=== PATIENT | female | born 1955 | race Caucasian/White ===

== ENCOUNTER 2022-09-16 09:04 | Inpatient (IN) | payer MEDICARE, MEDICAID ==
[~2022-09-16] VITALS: Ht 154.9 cm; Wt 54.2 kg
[2022-09-16] MEDS ORDERED: SODIUM CHLORIDE 0.9% 1,000 ML IV ONE (09:30)
[2022-09-16 09:51] LABS: Eosinophils # (auto) 0.1 10 ^3/uL (0-0.8); Hemoglobin 13.3 g/dL (12.2-16.2); Mean Corpuscular Hgb Conc. 33.8 g/dL (32.0-36.0); Nucleated Red Blood Cells % 0.1 %
[2022-09-16 09:53] LABS: Basophils # (auto) 0 10 ^3/uL (0-0.2); Basophils % (auto) 0.7 % (0.0-2.0); Hematocrit 39.5 % (36.0-46.0); Lymphocytes # (auto) 1.4 10 ^3/uL (0.4-5.4); Mean Corpuscular Hemoglobin 31.8 pg (28.0-32.0); Monocytes # (auto) 0.6 10 ^3/uL (0-1.3); Monocytes % (auto) 8.7 % (0.0-12.0); Neutrophils # (auto) 4.3 10 ^3/uL (1.6-8.6); Neutrophils % (auto) 67.6 % (37.0-80.0); Red Cell Distribution Width 14.8 % (11.8-14.3); White Blood Cell 6.4 10^3/uL (4.4-10.8)
[2022-09-16 10:05] LABS: Albumin 3.8 g/dL (3.4-5.0); Calcium 8.2 mg/dL (8.5-10.1); Potassium 4.2 mmol/L (3.5-5.1)
[2022-09-16 10:09] LABS: BUN/Creatinine Ratio 8.9; Bilirubin, Total 0.5 mg/dL (0.2-1.0); Total Protein 6.8 g/dL (6.4-8.2)
[2022-09-16 10:13] LABS: INR 1.01 (0.9-1.15); Partial Thromboplastin Time 30.8 sec (24.6-33.4)
[2022-09-16] MEDS ORDERED: GLYCERIN ADULT RECTAL SUPP PR ONE (14:15)
[2022-09-16] MEDS ORDERED: ONDANSETRON HCL 4 MG/2 ML VIAL IV PRN (14:15)
[2022-09-16] MEDS: PANTOPRAZOLE 40 MG/10 ML VIAL INJ IV SCH (20:46)
[2022-09-16] MEDS: SODIUM CHLORIDE 0.9% 1,000 ML IV SCH (20:49)
[2022-09-17 05:18] LABS: Basophils # (auto) 0.2 10 ^3/uL (0-0.2); Basophils % (auto) 2.7 % (0.0-2.0); Eosinophils # (auto) 0.1 10 ^3/uL (0-0.8); Eosinophils % (auto) 1.4 % (0.0-7.0); Hematocrit 39.6 % (36.0-46.0); Hemoglobin 12.9 g/dL (12.2-16.2); Lymphocytes # (auto) 1.5 10 ^3/uL (0.4-5.4); Lymphocytes % (auto) 24.3 % (10.0-50.0); Mean Corpuscular Hemoglobin 30.9 pg (28.0-32.0); Mean Corpuscular Hgb Conc. 32.5 g/dL (32.0-36.0); Mean Corpuscular Volume 95.3 fL (80.0-100.0); Monocytes # (auto) 0.5 10 ^3/uL (0-1.3); Monocytes % (auto) 7.4 % (0.0-12.0); Neutrophils % (auto) 64.2 % (37.0-80.0); Nucleated Red Blood Cells % 0.2 %; Red Blood Cells 4.16 10^6/uL (4.0-5.20); Red Cell Distribution Width 14.6 % (11.8-14.3); White Blood Cell 6.2 10^3/uL (4.4-10.8)
[2022-09-17 05:31] LABS: Calcium 7.1 mg/dL (8.5-10.1); Potassium 3.5 mmol/L (3.5-5.1)
[2022-09-17 05:33] LABS: BUN/Creatinine Ratio 32.4
[2022-09-17] MEDS: SODIUM CHLORIDE 0.9% 1,000 ML IV SCH ×2 (06:55→23:35)
[2022-09-17] MEDS: PANTOPRAZOLE 40 MG/10 ML VIAL INJ IV SCH (10:25)
[2022-09-17 13:00] VITALS: BP 97/57
[2022-09-17] MEDS ORDERED: PRED1SUS4 (14:05)
[2022-09-17] MEDS ORDERED: ATOR10TA52 PO (14:05)
[2022-09-17] MEDS ORDERED: LOS25T PO (14:05)
[2022-09-17] MEDS ORDERED: AMLO-489 PO (14:05)
[2022-09-17] MEDS ORDERED: LORA-340 (14:05)
[2022-09-17] MEDS ORDERED: LEV88T PO (14:05)
[2022-09-17] MEDS ORDERED: FLUT50SP NAS (14:05)
[2022-09-17] MEDS ORDERED: BACL10TA PO (14:05)
[2022-09-17] MEDS ORDERED: FOLI1TAB6 PO (14:05)
[2022-09-17] MEDS ORDERED: TRAZ100T3 PO (14:05)
[2022-09-17] MEDS ORDERED: METH2.5T PO (14:05)
[2022-09-17] MEDS ORDERED: PRE5T PO (14:05)
[2022-09-17 17:06] VITALS: BP 111/63
[2022-09-17 20:00] VITALS: BP 121/63
[2022-09-18 05:00] VITALS: BP 127/60
[2022-09-18 09:00] VITALS: BP 127/60
[2022-09-18] MEDS: PANTOPRAZOLE 40 MG/10 ML VIAL INJ IV SCH (09:11)
[2022-09-18 13:00] VITALS: BP 122/61
[2022-09-18] MEDS ORDERED: LACTULOSE 20Gm/30ML SOLN PO ONE (13:30)
[2022-09-18] MEDS ORDERED: FLEET ENEMA(ADULT) 135 ML PR ONE ×2 (13:30→14:00)
[2022-09-18] MEDS ORDERED: FLEET MINERAL OIL ENEMA 133 ML PR ONE (13:45)
[2022-09-18] MEDS: SODIUM CHLORIDE 0.9% 1,000 ML IV SCH (16:15)
[2022-09-18 17:00] VITALS: BP 135/70
[2022-09-18 22:00] VITALS: BP 148/65
[2022-09-18] MEDS: DOCUSATE SOD 100 MG CAP PO SCH (22:00)
[2022-09-18] MEDS: LACTULOSE 20Gm/30ML SOLN PO SCH (22:00)
[2022-09-19 05:00] VITALS: BP 142/66
[2022-09-19] MEDS ORDERED: FLEET ENEMA(ADULT) 135 ML PR ONE (06:00)
[2022-09-19] MEDS ORDERED: FLEET MINERAL OIL ENEMA 133 ML PR ONE (06:00)
[2022-09-19 08:00] VITALS: BP 125/56
[2022-09-19] MEDS: PANTOPRAZOLE 40 MG/10 ML VIAL INJ IV SCH (09:33)
[2022-09-19] MEDS: SODIUM CHLORIDE 0.9% 1,000 ML IV SCH (09:33)
[2022-09-19] MEDS: LACTULOSE 20Gm/30ML SOLN PO SCH ×2 (09:34→21:50)
[2022-09-19] MEDS: DOCUSATE SOD 100 MG CAP PO SCH ×2 (09:34→21:50)
[2022-09-19 13:00] VITALS: BP 122/62
[2022-09-19 16:58] VITALS: BP 108/61
[2022-09-19 22:00] VITALS: BP 143/67
[2022-09-20] MEDS: SODIUM CHLORIDE 0.9% 1,000 ML IV SCH ×2 (01:35→06:03)
[2022-09-20 05:00] VITALS: BP 110/67
[2022-09-20] MEDS ORDERED: FLEET MINERAL OIL ENEMA 133 ML PR ONE (05:00)
[2022-09-20 08:30] VITALS: BP 111/60
[2022-09-20] MEDS: LACTULOSE 20Gm/30ML SOLN PO SCH ×2 (08:56→21:40)
[2022-09-20] MEDS: DOCUSATE SOD 100 MG CAP PO SCH ×2 (08:57→21:40)
[2022-09-20 13:00] VITALS: BP 114/68
[2022-09-20] MEDS ORDERED: GOLYTELY 4L KIT PO ONE (16:45)
[2022-09-20] MEDS: POLYETHYLENE GLYCOL 17 GM PWDR PO SCH (18:00)
[2022-09-20 20:10] VITALS: BP 127/63
[2022-09-20 22:15] VITALS: BP 127/63
[2022-09-21] VITALS (7 sets, daily range): BP systolic 118–139; BP diastolic 61–79
[2022-09-21] MEDS ORDERED: LOPE2CAP PO (02:39)
[2022-09-21] MEDS ORDERED: ZOLP5TAB5 PO (02:39)
[2022-09-21] MEDS ORDERED: SENN-58 PO (02:39)
[2022-09-21] MEDS ORDERED: LIDO5PAD8 EX (02:39)
[2022-09-21] MEDS ORDERED: HYDR-4072 PO (02:39)
[2022-09-21 03:14] LABS: INR 1.15 (0.9-1.15); Partial Thromboplastin Time 33.1 sec (24.6-33.4)
[2022-09-21] MEDS ORDERED: FLEET MINERAL OIL ENEMA 133 ML PR ONE (05:00)
[2022-09-21] MEDS ORDERED: GOLYTELY 4L KIT PO ONE (06:00)
[2022-09-21 06:57] LABS: Urine Bacteria NONE SEEN /hpf (None Seen); Urine Blood TRACE /uL (Negative); Urine Mucus FEW (None Seen); Urine WBC 12 /hpf (0 - 5)
[2022-09-21] MEDS ORDERED: POLYETHYLENE GLYCOL 17 GM PWDR PO ONE (08:00)
[2022-09-21] MEDS: DOCUSATE SOD 100 MG CAP PO SCH ×2 (10:00→22:06)
[2022-09-21] MEDS: LACTULOSE 20Gm/30ML SOLN PO SCH ×2 (10:00→22:06)
[2022-09-21] MEDS ORDERED: NALOXONE HCL 0.4 MG/ML VIAL ONE (10:14)
[2022-09-21] MEDS ORDERED: FLUMAZENIL 0.1 MG/ML INJ 10ML MDV IV ONE (10:14)
[2022-09-21] MEDS ORDERED: EPINEPHrine HCL 1 MG/1 ML AMP ONE (10:14)
[2022-09-21] MEDS ORDERED: EPINEPHrine HCL 1 MG/10 ML SYRG ONE (10:14)
[2022-09-21] MEDS ORDERED: SODIUM CHLORIDE LOCK 10 ML ONE (10:16)
[2022-09-21] MEDS: diphenhdrAMINE HCL 50 MG/1 ML VL ONE ×2 (17:39→17:41)
[2022-09-21] MEDS: MIDAZOLAM HCL 5 MG/ML-1ML VIAL ONE ×4 (17:39→17:51)
[2022-09-21] MEDS: fentaNYL CITRATE 100 MCG/2 ML VL ONE ×3 (17:39→17:49)
[2022-09-21] MEDS: POLYETHYLENE GLYCOL 17 GM PWDR PO SCH (18:00)
[2022-09-21] MEDS: SODIUM CHLORIDE 0.9% 1,000 ML IV SCH (19:04)
[2022-09-22 05:00] VITALS: BP 101/68
[2022-09-22] MEDS: SODIUM CHLORIDE 0.9% 1,000 ML IV SCH (05:03)
[2022-09-22 08:00] VITALS: BP 122/72
[2022-09-22 09:28] VITALS: BP 97/64
[2022-09-22] MEDS ORDERED: POLY33504 PO (09:37)
[2022-09-22] MEDS: LACTULOSE 20Gm/30ML SOLN PO SCH (10:00)
[2022-09-22] MEDS: DOCUSATE SOD 100 MG CAP PO SCH (10:00)
[2022-09-22 12:45] VITALS: BP 99/61
[2022-09-22 13:51] VITALS: BP 102/82
== END 2022-09-22 14:50 | disposition home or self-care (01) | DRG 390 ==
LOC: ER 09:04 → OVERFLOW 14:17 → WEST WING 09-17 11:00
PROVIDERS: ADMIT Nurse Practitioner Family; ATTEND Family Medicine
PROC: 0DJD8ZZ Inspection of Lower Intestinal Tract, Via Natural or Artificial Opening Endoscopic (ICD-10-PCS; principal; 2022-09-21 17:30)
DX: K56.41 Fecal impaction (principal); I10 Essential (primary) hypertension; M41.9 Scoliosis, unspecified; Z20.822 Contact with and (suspected) exposure to COVID-19; K57.30 Diverticulosis of large intestine without perforation or abscess without bleeding
CPT/HCPCS: 36415; 71045; 74176; 80048; 80053; 81001; 84443; 84484; 85025; 85610; 85730; 86850; 86900; 86901; 87426; 96361; 96374; C9113; G0378; J0171; J2250

== ENCOUNTER → 2023-01-17 | Outpatient (CLI) | payer MEDICARE, MEDICAID ==
[~2023-01-17] MED LIST: AMLO-489 PO; ATOR10TA52 PO; BACL10TA PO; FLUT50SP NAS; FOLI1TAB6 PO; HYDR-4072 PO; LEV88T PO; LIDO5PAD8 EX; LOPE2CAP PO; LORA-340; LOS25T PO; METH2.5T PO; POLY33504 PO; PRE5T PO; PRED1SUS4; SENN-58 PO; TRAZ100T3 PO; ZOLP5TAB5 PO
[2023-01-17 09:24] LABS: Urine Bacteria NONE SEEN /hpf (None Seen); Urine Blood Negative /uL (Negative); Urine Specific Gravity 1.004 (1.001-1.035); Urine WBC <1 /hpf (0 - 5)
== END | disposition home or self-care (01) ==
LOC: LAB 09:04
PROVIDERS: ATTEND Obstetrics & Gynecology
DX: N39.0 Urinary tract infection, site not specified (principal)
CPT/HCPCS: 81001; 87086

== ENCOUNTER 2023-02-24 19:11 | Inpatient (IN) | payer MEDICARE, MEDICAID ==
[~2023-02-24] VITALS: Ht 154.9 cm; Wt 54.7 kg
[2023-02-24] MEDS ORDERED: ACCU-CHEK COMFORT CURVE STRIP VI ONE (21:00)
[2023-02-24 21:35] LABS: Basophils # (auto) 0.1 10 ^3/uL (0-0.2); Basophils % (auto) 1.4 % (0.0-2.0); Eosinophils # (auto) 0.3 10 ^3/uL (0-0.8); Eosinophils % (auto) 2.8 % (0.0-7.0); Hematocrit 39.2 % (36.0-46.0); Hemoglobin 12.9 g/dL (12.2-16.2); Lymphocytes # (auto) 1.7 10 ^3/uL (0.4-5.4); Lymphocytes % (auto) 17.9 % (10.0-50.0); Mean Corpuscular Hemoglobin 30.4 pg (28.0-32.0); Mean Corpuscular Volume 92.2 fL (80.0-100.0); Monocytes # (auto) 0.3 10 ^3/uL (0-1.3); Monocytes % (auto) 3.2 % (0.0-12.0); Neutrophils # (auto) 6.9 10 ^3/uL (1.6-8.6); Neutrophils % (auto) 74.7 % (37.0-80.0); Nucleated Red Blood Cells % 0.1 %; Red Blood Cells 4.25 10^6/uL (4.0-5.20); Red Cell Distribution Width 14.5 % (11.8-14.3); White Blood Cell 9.3 10^3/uL (4.4-10.8)
[2023-02-24 21:51] LABS: Albumin 3.5 g/dL (3.4-5.0); Potassium 3.3 mmol/L (3.5-5.1)
[2023-02-24 21:57] LABS: BUN/Creatinine Ratio 12.1 (10.0-20.0); Bilirubin, Total 0.4 mg/dL (0.2-1.0); Total Protein 7.1 g/dL (6.4-8.2)
[2023-02-24 22:00] LABS: Calcium 14.1 mg/dL (8.5-10.1)
[2023-02-25] MEDS ORDERED: SODIUM CHLORIDE 0.9% 1,000 ML IV SCH ×2 (02:30→05:15)
[2023-02-25] MEDS ORDERED: NITROGLYCERIN 0.4 MG SL TAB SL PRN ×2 (02:30→05:15)
[2023-02-25] MEDS ORDERED: ACETAMINOPHEN 325 MG TAB PO PRN ×2 (02:30→05:15)
[2023-02-25] MEDS ORDERED: HYDROcodone-ACET 5/325MG TAB PO PRN (02:30)
[2023-02-25] MEDS ORDERED: ONDANSETRON HCL 4 MG/2 ML VIAL IV PRN ×2 (02:30→05:15)
[2023-02-25] MEDS ORDERED: DOCUSATE SOD 100 MG CAP PO PRN ×2 (02:30→05:15)
[2023-02-25] MEDS ORDERED: FUROSEMIDE 40 MG/4 ML VIAL IV ONE ×2 (02:30→05:15)
[2023-02-25] MEDS ORDERED: MORPHINE SULFATE INJ 2 MG/ml SYRG IV PRN ×4 (02:30→05:15)
[2023-02-25] MEDS: HYDROcodone-ACET 5/325MG TAB PO PRN ×2 (05:25→23:02)
[2023-02-25] MEDS ORDERED: SODIUM CHLORIDE 0.9% 1,000 ML IV ONE (06:00)
[2023-02-25] MEDS: LEVOTHYROXINE SODIUM 88 MCG TAB PO SCH (06:34)
[2023-02-25 06:44] LABS: Basophils # (auto) 0.1 10 ^3/uL (0-0.2); Eosinophils # (auto) 0.2 10 ^3/uL (0-0.8); Eosinophils % (auto) 3.1 % (0.0-7.0); Hematocrit 34.4 % (36.0-46.0); Hemoglobin 11.6 g/dL (12.2-16.2); Lymphocytes # (auto) 1.3 10 ^3/uL (0.4-5.4); Lymphocytes % (auto) 18.5 % (10.0-50.0); Mean Corpuscular Hemoglobin 30.8 pg (28.0-32.0); Mean Corpuscular Hgb Conc. 33.6 g/dL (32.0-36.0); Mean Corpuscular Volume 91.7 fL (80.0-100.0); Monocytes # (auto) 0.2 10 ^3/uL (0-1.3); Monocytes % (auto) 2.7 % (0.0-12.0); Neutrophils # (auto) 5.1 10 ^3/uL (1.6-8.6); Neutrophils % (auto) 74.7 % (37.0-80.0); Nucleated Red Blood Cells % 0.1 %; Red Blood Cells 3.75 10^6/uL (4.0-5.20); Red Cell Distribution Width 14.1 % (11.8-14.3); White Blood Cell 6.9 10^3/uL (4.4-10.8)
[2023-02-25] MEDS ORDERED: LEVOTHYROXINE SODIUM 88 MCG TAB PO SCH (07:00)
[2023-02-25 07:11] LABS: Urine Bacteria NONE SEEN /hpf (None Seen); Urine Blood Negative /uL (Negative); Urine Hyaline Cast FEW /lpf (0 - 2); Urine Specific Gravity 1.009 (1.001-1.035); Urine WBC 1 /hpf (0 - 5)
[2023-02-25 07:18] LABS: Calcium 12.4 mg/dL (8.5-10.1)
[2023-02-25 07:22] LABS: Bilirubin, Total 0.4 mg/dL (0.2-1.0); Total Protein 6.5 g/dL (6.4-8.2)
[2023-02-25 07:36] LABS: Potassium 2.7 mmol/L (3.5-5.1)
[2023-02-25 07:39] LABS: Amphetamine Screen, Urine NEGATIVE (NEGATIVE); Barbiturate Scree,Urine NEGATIVE (NEGATIVE); Benzodiazephine Screen, Urine NEGATIVE (NEGATIVE); Cannabinoid Screen, Urine NEGATIVE (NEGATIVE); Cocaine Screen, Urine NEGATIVE (NEGATIVE); Opiate Scree,Urine NEGATIVE (NEGATIVE); Phencyclidine Screen, Urine NEGATIVE (NEGATIVE)
[2023-02-25] MEDS ORDERED: POTASSIUM CHL 20 Meq TABLET PO ONE (09:00)
[2023-02-25] MEDS ORDERED: FUROSEMIDE 20 MG/2 ML VIAL IV SCH (10:00)
[2023-02-25 10:30] LABS: Creatinine, Urine 43 mg/dL (30.0-125.0); Sodium Urine 43 mmol/L (40-220)
[2023-02-25] MEDS: SODIUM CHLORIDE 0.9% 1,000 ML IV SCH (13:52)
[2023-02-25 18:23] LABS: BUN/Creatinine Ratio 14.4 (10.0-20.0); Calcium 12.5 mg/dL (8.5-10.1); Potassium 3.3 mmol/L (3.5-5.1)
[2023-02-25 22:37] VITALS: BP 133/70
[2023-02-25 23:00] VITALS: BP 133/70
[2023-02-26] MEDS: SODIUM CHLORIDE 0.9% 1,000 ML IV SCH ×4 (00:39→21:45)
[2023-02-26 05:00] VITALS: BP 139/72
[2023-02-26 05:56] LABS: Basophils # (auto) 0.1 10 ^3/uL (0-0.2); Basophils % (auto) 1.8 % (0.0-2.0); Eosinophils # (auto) 0.3 10 ^3/uL (0-0.8); Eosinophils % (auto) 4.9 % (0.0-7.0); Lymphocytes # (auto) 1.5 10 ^3/uL (0.4-5.4); Lymphocytes % (auto) 25.4 % (10.0-50.0); Mean Corpuscular Hemoglobin 30.7 pg (28.0-32.0); Mean Corpuscular Hgb Conc. 34.3 g/dL (32.0-36.0); Mean Corpuscular Volume 89.7 fL (80.0-100.0); Monocytes # (auto) 0.2 10 ^3/uL (0-1.3); Monocytes % (auto) 2.6 % (0.0-12.0); Neutrophils # (auto) 3.8 10 ^3/uL (1.6-8.6); Neutrophils % (auto) 65.3 % (37.0-80.0); Red Blood Cells 3.57 10^6/uL (4.0-5.20); Red Cell Distribution Width 14.4 % (11.8-14.3); White Blood Cell 5.9 10^3/uL (4.4-10.8)
[2023-02-26] MEDS: LEVOTHYROXINE SODIUM 88 MCG TAB PO SCH (06:12)
[2023-02-26] MEDS: HYDROcodone-ACET 5/325MG TAB PO PRN ×3 (06:13→21:04)
[2023-02-26 06:21] LABS: Albumin 2.7 g/dL (3.4-5.0); BUN/Creatinine Ratio 16.7 (10.0-20.0); Bilirubin, Total 0.3 mg/dL (0.2-1.0); Calcium 11.2 mg/dL (8.5-10.1); Phosphorus 4.2 mg/dL (2.5-4.90); Uric Acid 9.3 mg/dL (2.6-6.0)
[2023-02-26 09:00] VITALS: BP 146/70
[2023-02-26] MEDS: FUROSEMIDE 20 MG/2 ML VIAL IV SCH (10:57)
[2023-02-26 13:00] VITALS: BP 157/73
[2023-02-26 17:00] VITALS: BP 148/71
[2023-02-26 22:00] VITALS: BP 146/71
[2023-02-27 05:00] VITALS: BP 140/80
[2023-02-27] MEDS: SODIUM CHLORIDE 0.9% 1,000 ML IV SCH ×2 (06:10→14:26)
[2023-02-27] MEDS: LEVOTHYROXINE SODIUM 88 MCG TAB PO SCH (06:10)
[2023-02-27 09:00] VITALS: BP 160/78
[2023-02-27] MEDS: FUROSEMIDE 20 MG/2 ML VIAL IV SCH (10:18)
[2023-02-27 13:00] VITALS: BP 150/70
[2023-02-27] MEDS: HYDROcodone-ACET 5/325MG TAB PO PRN (14:26)
[2023-02-27 14:36] LABS: BUN/Creatinine Ratio 16.6 (10.0-20.0); Bilirubin, Total 0.2 mg/dL (0.2-1.0); Total Protein 6.2 g/dL (6.4-8.2)
[2023-02-27 14:47] LABS: Potassium 2.8 mmol/L (3.5-5.1)
[2023-02-27] MEDS ORDERED: POTASSIUM EFFERVESENT TAB 25 MEQ PO ONE (15:00)
[2023-02-27 17:00] VITALS: BP 135/66
[2023-02-27 20:00] VITALS: BP 160/78
[2023-02-27] MEDS ORDERED: LORazepam 2MG/ML-1ML VIAL IV PRN (21:30)
[2023-02-27 22:00] VITALS: BP 156/75
[2023-02-27 23:32] LABS: Folate (Folic Acid) > 24.00 ng/mL (5.38-24)
[2023-02-28 05:00] VITALS: BP 160/82
[2023-02-28] MEDS: SODIUM CHLORIDE 0.9% 1,000 ML IV SCH ×2 (05:45→05:57)
[2023-02-28] MEDS: LEVOTHYROXINE SODIUM 88 MCG TAB PO SCH (05:57)
[2023-02-28 07:09] LABS: Basophils # (auto) 0.1 10 ^3/uL (0-0.2); Basophils % (auto) 1.5 % (0.0-2.0); Eosinophils # (auto) 0.2 10 ^3/uL (0-0.8); Eosinophils % (auto) 4.7 % (0.0-7.0); Hematocrit 31.4 % (36.0-46.0); Lymphocytes # (auto) 1.1 10 ^3/uL (0.4-5.4); Lymphocytes % (auto) 22.2 % (10.0-50.0); Mean Corpuscular Hemoglobin 30.8 pg (28.0-32.0); Mean Corpuscular Volume 87.9 fL (80.0-100.0); Monocytes # (auto) 0.4 10 ^3/uL (0-1.3); Monocytes % (auto) 7.8 % (0.0-12.0); Neutrophils # (auto) 3.3 10 ^3/uL (1.6-8.6); Neutrophils % (auto) 63.8 % (37.0-80.0); Red Blood Cells 3.57 10^6/uL (4.0-5.20); Red Cell Distribution Width 14.3 % (11.8-14.3); White Blood Cell 5.2 10^3/uL (4.4-10.8)
[2023-02-28 07:16] LABS: Albumin 2.8 g/dL (3.4-5.0); Calcium 9.9 mg/dL (8.5-10.1)
[2023-02-28 07:21] LABS: BUN/Creatinine Ratio 18.4 (10.0-20.0); Bilirubin, Total 0.3 mg/dL (0.2-1.0); Total Protein 5.8 g/dL (6.4-8.2)
[2023-02-28 07:28] LABS: Potassium 2.9 mmol/L (3.5-5.1)
[2023-02-28 08:06] LABS: Immunoglobulin G, Serum 595 mg/dL (586-1602)
[2023-02-28 08:26] VITALS: BP 170/74
[2023-02-28] MEDS: POTASSIUM CHL 20MEQ/100ML 100 ML IV SCH ×3 (09:04→15:36)
[2023-02-28] MEDS ORDERED: cloNIDine HCL 0.1 MG TAB PO PRN (12:00)
[2023-02-28] MEDS ORDERED: SOD CHL 0.9%/ KCL 40MEQ 1,000 ML IV ONE (12:00)
[2023-02-28] MEDS: HYDROcodone-ACET 5/325MG TAB PO PRN ×2 (12:30→21:20)
[2023-02-28 12:36] VITALS: BP 149/80
[2023-02-28 16:43] VITALS: BP 168/90
[2023-02-28 20:00] VITALS: BP 138/75
[2023-02-28 22:00] VITALS: BP 138/75
[2023-03-01 04:57] VITALS: BP 133/64
[2023-03-01 06:03] LABS: Basophils # (auto) 0.1 10 ^3/uL (0-0.2); Basophils % (auto) 1.2 % (0.0-2.0); Eosinophils # (auto) 0.4 10 ^3/uL (0-0.8); Eosinophils % (auto) 6.7 % (0.0-7.0); Hematocrit 30.3 % (36.0-46.0); Hemoglobin 10.7 g/dL (12.2-16.2); Lymphocytes # (auto) 1.2 10 ^3/uL (0.4-5.4); Lymphocytes % (auto) 17.9 % (10.0-50.0); Mean Corpuscular Hemoglobin 31.7 pg (28.0-32.0); Mean Corpuscular Hgb Conc. 35.3 g/dL (32.0-36.0); Mean Corpuscular Volume 89.8 fL (80.0-100.0); Monocytes # (auto) 0.5 10 ^3/uL (0-1.3); Monocytes % (auto) 8.3 % (0.0-12.0); Neutrophils # (auto) 4.3 10 ^3/uL (1.6-8.6); Neutrophils % (auto) 65.9 % (37.0-80.0); Red Blood Cells 3.37 10^6/uL (4.0-5.20); Red Cell Distribution Width 14.3 % (11.8-14.3); White Blood Cell 6.5 10^3/uL (4.4-10.8)
[2023-03-01 06:15] LABS: Albumin 2.7 g/dL (3.4-5.0); Calcium 9.2 mg/dL (8.5-10.1)
[2023-03-01 06:19] LABS: BUN/Creatinine Ratio 17.9 (10.0-20.0); Bilirubin, Total 0.3 mg/dL (0.2-1.0); Total Protein 5.3 g/dL (6.4-8.2)
[2023-03-01] MEDS: LEVOTHYROXINE SODIUM 88 MCG TAB PO SCH (06:32)
[2023-03-01 09:00] VITALS: BP 121/66
[2023-03-01] MEDS: HYDROcodone-ACET 5/325MG TAB PO PRN (09:28)
[2023-03-01] MEDS ORDERED: POTA10TA51 PO (11:15)
[2023-03-01 12:45] VITALS: BP 132/73
== END 2023-03-01 14:20 | disposition home or self-care (01) | DRG 682 ==
LOC: ER 19:11 → TELE-WESTW 22:57 → OVERFLOW 02-25 02:26 → TELE-WESTW 02-25 20:20
PROVIDERS: ADMIT Nurse Practitioner Family; ATTEND Family Medicine
PROC: 4A00X4Z Measurement of Central Nervous Electrical Activity, External Approach (ICD-10-PCS; principal; 2023-02-28)
DX: N17.9 Acute kidney failure, unspecified (principal); J96.01 Acute respiratory failure with hypoxia; J98.11 Atelectasis; R17 Unspecified jaundice; E86.9 Volume depletion, unspecified; E03.9 Hypothyroidism, unspecified; D64.9 Anemia, unspecified; E86.0 Dehydration; E87.6 Hypokalemia; G62.9 Polyneuropathy, unspecified; G89.29 Other chronic pain; I10 Essential (primary) hypertension; K59.00 Constipation, unspecified; N20.0 Calculus of kidney; M47.9 Spondylosis, unspecified; R32 Unspecified urinary incontinence; Z79.899 Other long term (current) drug therapy; Z83.3 Family history of diabetes mellitus; Z82.5 Family history of asthma and other chronic lower respiratory diseases
CPT/HCPCS: 36415; 70450; 70551; 71045; 71250; 72141; 76775; 80048; 80053; 80307; 81001; 82306; 82533; 82570; 82607; 82746; 82784; 82962; 83880; 83970; 84100; 84156; 84166; 84300; 84443; 84484; 84550; 85025; 86334; 87426; 93970; 95819; 96361; 96374; 97163; G0378; J3480

== ENCOUNTER → 2023-05-01 | Outpatient (CLI) | payer MEDICARE, MEDICAID ==
[~2023-05-01] MED LIST changes: -AMLO-489 PO; +AMLO1TAB22 PO; +FOLI-119 PO; -FOLI1TAB6 PO; -LEV88T PO; +LEVO-177 PO; -LORA-340; +POTA10TA51 PO; -PRE5T PO; -PRED1SUS4; -TRAZ100T3 PO; +[UNRECOGNIZED DRUG - CODE]
[2023-05-01 08:04] LABS: Basophils # (auto) 0.1 10 ^3/uL (0-0.2); Basophils % (auto) 2.2 % (0.0-2.0); Eosinophils # (auto) 0.2 10 ^3/uL (0-0.8); Eosinophils % (auto) 3.6 % (0.0-7.0); Hematocrit 38.2 % (36.0-46.0); Hemoglobin 12.7 g/dL (12.2-16.2); Lymphocytes # (auto) 2.3 10 ^3/uL (0.4-5.4); Lymphocytes % (auto) 38.9 % (10.0-50.0); Mean Corpuscular Hemoglobin 31.2 pg (28.0-32.0); Mean Corpuscular Hgb Conc. 33.3 g/dL (32.0-36.0); Mean Corpuscular Volume 93.6 fL (80.0-100.0); Monocytes # (auto) 0.6 10 ^3/uL (0-1.3); Monocytes % (auto) 9.8 % (0.0-12.0); Neutrophils # (auto) 2.7 10 ^3/uL (1.6-8.6); Neutrophils % (auto) 45.5 % (37.0-80.0); Nucleated Red Blood Cells % 0.1 %; Red Blood Cells 4.08 10^6/uL (4.0-5.20); Red Cell Distribution Width 16.3 % (11.8-14.3); White Blood Cell 5.9 10^3/uL (4.4-10.8)
[2023-05-01 08:36] LABS: Albumin 3.8 g/dL (3.4-5.0); Calcium 8.5 mg/dL (8.5-10.1); Potassium 4.1 mmol/L (3.5-5.1)
[2023-05-01 08:42] LABS: BUN/Creatinine Ratio 18.2 (10.0-20.0); Bilirubin, Total 0.4 mg/dL (0.2-1.0); Total Protein 6.8 g/dL (6.4-8.2)
== END | disposition home or self-care (01) ==
LOC: LAB 07:50
PROVIDERS: ATTEND Student in an Organized Health Care Education/Training Program
DX: I10 Essential (primary) hypertension (principal); E78.5 Hyperlipidemia, unspecified; D64.9 Anemia, unspecified; E83.52 Hypercalcemia; E87.6 Hypokalemia
CPT/HCPCS: 36415; 80053; 80061; 84443; 85025